=== PATIENT | female | born 1955 | race Caucasian/White ===

== ENCOUNTER 2022-05-31 08:54 | Emergency (ER) | payer MEDICARE ==
[2022-05-31 09:04] VITALS: BP 159/98
--- OUTSIDE RECORDS SUMMARY | 2022-05-31 09:08 | EXTERNAL MEDICAL SUMMARY RPT | Continuity of Care Document ---
:1955 Author Organization [facility] Address [address] [place] [address] Phone Care Team Providers Name Role Phone Unavailable Unavailable Unavailable Adebayo Jacinto, [place] Unavailable Unavailable Damaris, Provider Unavailable Unavailable Allergies No information. Encounters No information. Functional Status No information. Immunizations No information. Medications date description facility 2022-04-29 00:00 erythromycin [facility] [place] 2022-04-29 00:00 erythromycin [facility] [place] 2022-04-29 00:00 erythromycin [facility] [place] 2022-04-29 00:00 erythromycin [facility] [place] 2022-04-29 00:00 erythromycin [facility] [place] 2022-04-29 00:00 erythromycin [facility] [place] 2022-04-29 00:00 erythromycin [facility] [place] 2022-04-29 00:00 erythromycin [facility] [place] Problems date description facility 2022-04-29 00:00 External hordeolum [facility] [place] 2022-04-29 00:00 External [facility]deolum [facility] [place] 2022-04-29 00:00 Hordeolum externum [facility] [place] 2022-04-29 00:00 Horde[facility]um externum [facility] [place] 2022-04-29 00:00 Hordeolum externum unspecified [facility] unspecified eyelid [facility] [place] 2022-04-29 00:00 Hordeolum externum unspecified [facility] [place] Procedures date description facility 2022-04-29 00:00 Visit Code Hold [facility] [place] 2022-04-29 00:00 Visit Code Hold [facility] [place] Results/Labs No information. Social History date description facility 2022-04-29 00:00 Unknown if ever smoked [facility] [place] 2022-04-29 00:00 Unknown if ever smoked [facility] [place] 2022-05-03 00:00 Unknown if ever smoked [facility] [place] Vital Signs date measurement value units 2022-04-29 00:00 BMI 20.31 kg/m2 2022-04-29 00:00 BP_diastolic 92 mmHg 2022-04-29 00:00 BP_systolic 140 mmHg 2022-04-29 00:00 heart_rate 95 /min 2022-04-29 00:00 height_metric 167.64 cm 2022-04-29 00:00 height_standard 66 in 2022-04-29 00:00 respiration_rate 12 /min 2022-04-29 00:00 temperature_metric 37.72 C 2022-04-29 00:00 temperature_standard 99.9 F 2022-04-29 00:00 weight_metric 56.88 kg 2022-04-29 00:00 weight_standard 125.4 lb
--- NOTE | 2022-05-31 09:09 | ED Physician Documentation ---
PD HPI BACK PAIN - Stated complaint Stated Complaint: BACK PX - Chief complaint Chief Complaint: Back Pain - History obtained from History obtained from: Patient - History of Present Illness Timing - onset: How many days ago (5) Timing - duration: Days (5) Timing - details: Gradual onset, Still present Location: Lower, Right, Left Quality: Pain, Spasm, Similar to prior episodes Associated symptoms: Fever. No: Weakness, Numbness, Incontinent of urine Improves with: No: Rest, Meds (tried Aspirin, CBD oil, and topical patches.) Worsened by: Movement, Twisting. No: Palpation Contributing factors: No: Lifting, Twisting Similar symptoms before: Diagnosis (HNP with some foraminal impingement in upper lumbar area. Was to get disc injection or rhizotomy or such ("burning the nerve")) Recently seen: Clinic ([facility] [place] was directed to try OTC meds and CBD oil. These were not effective.) Review of Systems Constitutional: denies: Fever, Chills : denies: Incontinent Skin: denies: Rash, Lesions Neurologic: denies: Focal weakness, Numbness PD PAST MEDICAL HISTORY - Past Medical History Cardiovascular: None Neuro: None Musculoskeletal: Chronic back pain - Present Medications Home Medications: Ambulatory Orders Medication Instructions Recorded Confirmed Gabapentin [Neurontin] 100 mg PO TID 15 Days #45 cap 05/31/22 Meloxicam [Mobic] 7.5 mg PO BID 10 Days #20 tablet 05/31/22 dexAMETHasone [Decadron] 4 mg PO DAILY #5 tablet 05/31/22 methocarbamoL [Robaxin] 500 mg PO TID PRN #30 tablet 05/31/22 oxyCODONE [Roxicodone] 5 mg PO Q6H PRN #18 tablet 05/31/22 - Allergies Allergies/Adverse Reactions: Allergies Allergy/AdvReac Type Severity Reaction Status Date / Time tetanus and diphtheria Allergy Unknown Verified 05/31/22 09:01 toxoids Results - Vitals Vitals: Vital Signs - 24 hr 05/31/22 08:58 Temperature 36.4 C L Heart Rate 128 H Respiratory 16 Rate Blood Pressure 159/98 H O2 Saturation 99 Oxygen O2 Source Room air PD Medical Decision Making - ED course Social Determinants of Health: She was living in [place], with primary care and back specialist there, but moved here in March and is still developing careproviders. Has PCP at [facility]. Getting referral to Pain Clinic, per patient. Drug Therapy Requiring Monitoring for Toxicity: considered IM narcotic but she is driving herself and did not want to cause sedation/impairment. Procedural Risk Factors Specific to Patient: The patient has had chronic back pain without recent new injury and does not have any red flags to suggest need for current emergent imaging. ED course: Exac of chronic back pain. No red flags. Will give Rx for meds. Departure - Departure Disposition: Home, Self Care Clinical Impression: Thoracolumbar back pain Condition: Stable Record reviewed to determine appropriate education?: Yes Instructions: ED Neck Back Pain General Follow-Up: NORRIS FINNEY ARNP [Primary Care Provider] - Prescriptions: dexAMETHasone [Decadron] 4 mg PO DAILY #5 tablet Meloxicam [Mobic] 7.5 mg PO BID 10 Days #20 tablet Gabapentin [Neurontin] 100 mg PO TID 15 Days #45 cap methocarbamoL [Robaxin] 500 mg PO TID PRN #30 tablet PRN Reason: Spasms oxyCODONE [Roxicodone] 5 mg PO Q6H PRN #18 tablet PRN Reason: Pain Comments: Back pain related to disc problems and pinched nerves are commonly treated with a combination of oral and topical treatments with medication as well as physical modalities. Continue with topical treatments of some anti-inflammatories or lidocaine or CBD as you have been using. Consider physical treatment such as physical therapy or chiropractic as well. Medications we can add our a combination of anti-inflammatories with muscle relaxant as well as medication targeted at nerve irritation. I would have you start with Decadron steroid anti-inflammatory daily for 5 days and then when that is done to change to meloxicam NSAID twice daily. Robaxin muscle relaxant for spasms and stiffness. Gabapentin is commonly tried to help with nerve and spine type pains. I started a very low-dose of 100 mg 3 times a day. To that add Tylenol every 4-6 hours for pain and add oxycodone atop that if needed for worse pain. Follow-up with your primary care. Continue with referrals to pain specialist and back specialist. I sent your prescriptions to [facility] in [place]. I am prescribing a short course of narcotic pain medication for you. These are potentially dangerous and addictive medications that should be used carefully. These medications may constipate you. Take an cvlt-aky-rndigwi stool softener such as docusate twice daily with plenty of water while taking these medications. If you go 24 hours without a bowel movement, take caml-pdv-vditumi MiraLAX, per package instructions. Do not drink or drive while taking these medications. If you received narcotic or sedating medications while in the emergency department do not drive for 24 hours. Store this medication in a safe, secure place and out of reach of children. It is a violation of federal law to give or sell this medication to another person or to use in a manner other than prescribed. The ED will not refill narcotic prescriptions, including prescriptions lost or stolen. You can dispose of unwanted medications at the [facility]'s office or at several pharmacies such as [facility]. Discharge Date/Time: 05/31/22 10:20
[2022-05-31] MEDS ORDERED: ACETAMINOPHEN 325 MG TABLET PO STA (09:37)
[2022-05-31] MEDS ORDERED: DEXAMETHASONE 10 MG/ML VIAL PO STA (09:37)
[2022-05-31] MEDS ORDERED: KETOROLAC 30 MG/ML VIAL IM STA (09:37)
[2022-05-31] MEDS ORDERED: CHERRY SYRUP 10 ML UDC PO ONE (09:37)
[2022-05-31] MEDS ORDERED: methocarbamoL 500 MG TABLET PO STA (09:37)
== END 2022-05-31 10:20 | disposition home or self-care (01) ==
LOC: ED 08:54
DX: M54.50 Low back pain, unspecified (principal); M54.6 Pain in thoracic spine
CPT/HCPCS: 96372; 99284; A9270

== ENCOUNTER 2022-06-05 07:27 | Outpatient (CLI) | payer MEDICARE ==
--- NOTE | 2022-06-07 08:23 | MRI Report ---
PROCEDURE: THORACIC SPINE WO INDICATIONS: THORACIC BACK PAIN TECHNIQUE: Noncontrast sagittal T1 spine echo and T2 fast spin echo, sagittal STIR, axial T1 and T2 fast spin ec ho through the thoracic spine. COMPARISON: None. FINDINGS: Image quality: Excellent. Alignment and Curvature: Mild S-shaped thoracolumbar scoliotic curvature. Minimal thoracic convexity to the right. Bone Marrow: Marrow is of normal overall signal. No acute vertebral body compression fractures. Mu ltilevel degenerative disc space loss. There is disc space fluid at T10-T11, which is felt to be arth ritic in nature. Spinal Cord: Visualized spinal cord is normal in size and signal. Conus is at T12-L1. Paraspinous Soft Tissues: No paravertebral masses. Miscellaneous: On axial images, central canal is patent at all scanned levels. There is no significa nt foraminal narrowing at any level. There are disc bulge is present at T7-T8 and T10-T11 without can al stenosis. There is a mild left posterior disc protrusion at T11-T12 without canal stenosis or sign ificant foraminal stenosis. IMPRESSION: 1. Mild scoliotic curvature, multilevel degenerative disc disease. 2. Multilevel disc bulges. 3. No canal stenosis or significant foraminal stenosis. 4. No thoracic compression fractures. Reviewed by: Kit Pelaez MD on 06/07/2022 8:22 AM PST Approved by: Kit Pelaez MD on 06/07/2022 8:22 AM PST Station ID: [id number]
== END 2022-06-05 07:28 | disposition home or self-care (01) ==
LOC: DI 07:27
PROVIDERS: ATTEND Nurse Practitioner Family
DX: M51.24 Other intervertebral disc displacement, thoracic region (principal); M51.34 Other intervertebral disc degeneration, thoracic region

== ENCOUNTER 2022-06-05 07:29 | Outpatient (CLI) | payer MEDICARE ==
--- NOTE | 2022-06-05 09:35 | XRAY Report ---
PROCEDURE: Lumbar Spine 2 View INDICATIONS: THORACIC BACK PAIN TECHNIQUE: 2 views of the lumbar spine were acquired. COMPARISON: None. FINDINGS: Bones: 5 ygr-evj-zlicmmn vertebrae are present. There is moderate levoscoliosis of lumbar spine erick tered at L3 level. Moderate degenerative endplate changes, loss of disc height and bilateral facet ar throsis throughout lumbar spine is seen. No vertebral body compression fractures. No suspicious bony lesions. Soft tissues: Overlying bowel gas pattern is normal. No suspicious soft tissue calcifications. IMPRESSION: Scoliosis as above. No acute compression fracture. Degenerative disc disease throughout lumbar spine. Reviewed by: Harvinder Egan MD on 06/05/2022 9:34 AM PST Approved by: Harvinder Egan MD on 06/05/2022 9:34 AM PST Station ID: [id number]
--- NOTE | 2022-06-05 09:45 | XRAY Report ---
PROCEDURE: Cervical Spine 2 View INDICATIONS: THORACIC BACK PAIN TECHNIQUE: 3 view(s) of the cervical spine were acquired. COMPARISON: None. FINDINGS: Bones: No fractures or dislocations to the C7-T1 level. There is 3 to 4 mm anterolisthesis of C3 on C4 and C4 on C5. Degenerative endplate changes, loss of disc height and bilateral facet hypertrophic changes throughout cervical spine is seen. The lateral masses of C1 appear intact on the odontoid vi ew. No suspicious bony lesions. Soft tissues: No prevertebral soft tissue swelling. IMPRESSION: No acute cervical spine fracture or dislocation. Grade 1 anterolisthesis of C3 on C4 and C4 on C5. Degenerative disc disease throughout cervical spine. Reviewed by: Harvinder Egan MD on 06/05/2022 9:44 AM PST Approved by: Harvinder Egan MD on 06/05/2022 9:44 AM [facility] Station ID: [id number]
--- NOTE | 2022-06-05 10:31 | XRAY Report ---
PROCEDURE: Thoracic Spine 2 View INDICATIONS: THORACIC BACK PAIN TECHNIQUE: 3 views of the thoracic spine were acquired. COMPARISON: Correlation is made with the accompanying radiographs and the accompanying thoracic spin e MRI. FINDINGS: Bones: No fractures or dislocations. No suspicious bony lesions. 12 pairs of ribs are noted, and a ppear intact where visualized. Moderate dextroconvex thoracal lumbar scoliosis can be seen. There is accentuated thoracic kyphosis. Several levels of minimal anterior wedge deformity can be seen within the lower thoracic spine. No ac chemehuevi features are seen. Several levels of endplate irregularity and sclerosis can be seen. Soft tissues: No paravertebral stripe thickening. IMPRESSION: Moderate dextroconvex scoliosis. Degenerative changes are seen throughout. Several levels of minimal anterior wedge deformity can be seen, with associated accentuated thoracic kyphosis. Reviewed by: Osorio Zhang MD on 06/05/2022 9:30 AM [facility] Approved by: Osorio Zhang MD on 06/05/2022 9:30 AM [facility] Station ID: [id number]
== END 2022-06-05 07:30 | disposition home or self-care (01) ==
LOC: DI 07:29
PROVIDERS: ATTEND Nurse Practitioner Family
DX: M47.814 Spondylosis without myelopathy or radiculopathy, thoracic region (principal); M51.36 Other intervertebral disc degeneration, lumbar region; M43.12 Spondylolisthesis, cervical region; M50.30 Other cervical disc degeneration, unspecified cervical region; M51.34 Other intervertebral disc degeneration, thoracic region; M51.24 Other intervertebral disc displacement, thoracic region

== ENCOUNTER 2022-07-12 14:49 | Outpatient (CLI) | payer MEDICARE | END 2022-07-12 14:50 | disposition home or self-care (01) | LOC: LAB.S 14:49 | PROVIDERS: ATTEND Nurse Practitioner Family | DX: Z11.1 Encounter for screening for respiratory tuberculosis (principal) | CPT/HCPCS: 81599; 86480 ==

== ENCOUNTER 2023-07-10 13:25 | Emergency (ER) | payer MEDICARE ==
[2023-07-10] MEDS ORDERED: ONDANSETRON 4 MG/2 ML VIAL IVP STA (14:01)
[2023-07-10 14:27] LABS: BASOPHILS % (AUTO) 0.2 %; EOSINOPHILS % (AUTO) 0.1 %; HCT - HEMATOCRIT 51.4 % (37.0-47.0); HGB - HEMOGLOBIN 16.8 g/dL (12.0-16.0); LYMPHOCYTES % (AUTO) 7.5 %; MEAN CORPUSCULAR HEMOGLOBIN 29.5 pg (27.0-31.0); MEAN CORPUSCULAR HGB CONC 32.7 g/dL (32.0-36.0); MEAN CORPUSCULAR VOLUME 90.2 fL (81.0-99.0); MEAN PLATELET VOLUME 9.5 fL (7.9-10.8); MONOCYTES # (AUTO) 0.3 10^3/uL (0.0-1.0); MONOCYTES % (AUTO) 2.2 %; NEUTROPHILS # (AUTO) 12.4 10^3/uL (1.5-6.6); NEUTROPHILS % (AUTO) 89.4 %; PLT - PLATELET COUNT 437 10^3/uL (130-450); RED CELL DISTRIBUTION WIDTH 12.2 % (12.0-15.0); WHITE BLOOD COUNT 13.9 x10^3/uL (4.8-10.8)
[2023-07-10 14:44] LABS: ALBUMIN/GLOBULIN RATIO 1.6 (1.0-2.2); ALKALINE PHOSPHATASE 117 IU/L (42-121); ALT ALANINE AMINOTRANSFERASE 20 IU/L (10-60); AST ASPARTATE AMINOTRANSFERASE 16 IU/L (10-42); BILIRUBIN,TOTAL 0.6 mg/dL (0.2-1.0); BUN - BLOOD UREA NITROGEN 12 mg/dL (6-20); CALCIUM 9.9 mg/dL (8.5-10.3); CARBON DIOXIDE - CO2 26 mmol/L (21-32); CHLORIDE 101 mmol/L (101-111); CREATININE 0.7 mg/dL (0.6-1.3); GFR - MDRD 83 (>89); GLUCOSE 162 mg/dL (74-104); POTASSIUM 3.8 mmol/L (3.5-4.5); SODIUM 138 mmol/L (135-145); TOTAL PROTEIN 8.1 g/dL (6.4-8.9)
[2023-07-10 14:47] LABS: LIPASE < 10 U/L (11-82)
--- NOTE | 2023-07-10 14:54 | ED Physician Documentation ---
PD HPI NVD - Stated complaint Stated Complaint: N/V,CHILLS,SWEATING - Chief complaint Chief Complaint: Abd Pain - History obtained from History obtained from: Patient - History of Present Illness Timing - onset: Today Timing - duration: Hours Timing - details: Abrupt onset, Still present Associated symptoms: Abdominal pain (cramping intermittent upper abd.), Loss of appetite. No: Fever, Chest pain, Hematemesis, Near syncope / syncope (but feeling generally weak) Contributing factors: Alcohol use (along with cannibis fudge.). No: Sick contact, Bad food Similar symptoms before: Has not had sx before Review of Systems Constitutional: denies: Fever, Chills Nose: denies: Rhinorrhea / runny nose, Congestion Throat: denies: Sore throat Respiratory: denies: Cough GI: denies: Diarrhea PD PAST MEDICAL HISTORY - Past Medical History Past Medical History: Yes Cardiovascular: None Neuro: None Musculoskeletal: Chronic back pain - Past Surgical History Past Surgical History: Yes /[employer]: Hysterectomy - Present Medications Home Medications: Ambulatory Orders Medication Instructions Recorded Confirmed Gabapentin [Neurontin] 100 mg PO TID 15 Days #45 cap 05/31/22 07/10/23 Meloxicam [Mobic] 7.5 mg PO BID 10 Days #20 tablet 05/31/22 07/10/23 methocarbamoL [Robaxin] 500 mg PO TID PRN #30 tablet 05/31/22 07/10/23 oxyCODONE [Roxicodone] 5 mg PO Q6H PRN #18 tablet 05/31/22 07/10/23 Ondansetron Odt [Zofran] 4 mg TL Q6H PRN #10 tablet 07/10/23 - Allergies Allergies/Adverse Reactions: Allergies Allergy/AdvReac Type Severity Reaction Status Date / Time tetanus and diphtheria Allergy Unknown Verified 07/10/23 15:09 toxoids - Social History Does the pt smoke?: Yes Smoking Status: Current every day smoker PD ED PE NORMAL - Vitals Vital signs reviewed: Yes (mild tachycarida. BP elevated and not low. ) - General General: Alert and oriented X 3, No acute distress, Well developed/nourished - HEENT HEENT: Pharynx benign - Neck Neck: Supple, no meningeal sign, No adenopathy - Cardiac Cardiac: RRR (mild tachy), No murmur - Respiratory Respiratory: No respiratory distress, Clear bilaterally - Abdomen Abdomen: Normal bowel sounds, Soft, Non tender, Non distended, No organomegaly - Derm Derm: Normal color, Warm and dry Results - Vitals Vitals: Oxygen O2 Source Room air - Labs Labs: Laboratory Tests 07/10/23 07/10/23 14:24 14:24 WBC 13.9 H RBC 5.70 H Hgb 16.8 H Hct 51.4 H MCV 90.2 MCH 29.5 MCHC 32.7 RDW 12.2 Plt Count 437 MPV 9.5 Neut # (Auto) 12.4 H Lymph # (Auto) 1.0 L Quay # (Auto) 0.3 Eos # (Auto) 0.0 Baso # (Auto) 0.0 Absolute Nucleated RBC 0.00 Nucleated RBC % 0.0 Sodium 138 Potassium 3.8 Chloride 101 Carbon Dioxide 26 Anion Gap 11.0 BUN 12 Creatinine 0.7 Estimated GFR (MDRD) 83 L Glucose 162 H Calcium 9.9 Total Bilirubin 0.6 AST 16 ALT 20 Alkaline Phosphatase 117 Total Protein 8.1 Albumin 5.0 Globulin 3.1 Albumin/Globulin Ratio 1.6 Lipase < 10 L PD Medical Decision Making - ED course Complexity details: reviewed results (chemistry panel without notable abnormalities, done tocheck lytes which are good, sugar, which is good, and LFTs/Lipse which are not elevated. WBC and Hgb elevated suggesting possible infectious though could be stress demargination of WBC, and elevated Hgb c/w volume depletion. ), re-evaluated patient (We can check electrolytes and blood count. Otherwise give IV fluids and antiemetic for presumed substance related nausea and acute gastritis. She denies hematemesis. No diarrhea.), considered differential (The patient had a combination of some wine as well as Jell-O shots and cannabis fudge last evening add a "alliance party" at her house. She denies use of marijuana in the past. She is feeling nauseous overnight with repetitive vomiting. No diarrhea. No head cold symptoms.), d/w patient Reviewed Lab Results: No focal tenderness on exam so considered but did not see needed aany imaging, noy in conjunction with nromal LFTs/lipase. Departure - Departure Disposition: 01 Home, Self Care Clinical Impression: Nausea and vomiting, Volume depletion, Acute gastritis Condition: Stable Record reviewed to determine appropriate education?: Yes Instructions: ED Nausea Vomiting Prescriptions: Ondansetron Odt [Zofran] 4 mg TL Q6H PRN #10 tablet PRN Reason: Nausea / Vomiting Comments: Presumption would be an irritation of your stomach related to the alcohol use and/or medication. Potential could be a concurrent or coincident viral type illness. I would presume your nausea will be improved and the stomach irritation heal over the next day or 2. We are sending you with a couple of ondansetron/Zofran tablets to use if needed for nausea. Small frequent fluids with small amounts at a time initially. [place] food initially. Progress as tolerated later today or tomorrow. You were given IV fluids here to "fill up the tank". That we will provide a buffer for in case you are not able to hydrate well tonight. Recheck if not improved well over the next few days back to baseline. Return if needed. I did write a prescription for some more of the nausea medicine if you were to need it. Forms: PCP List Discharge Date/Time: 07/10/23 18:03
[2023-07-10] MEDS: SODIUM CHLORIDE 0.9% 1,000 ML IV STA (15:29)
[2023-07-10] MEDS: ONDANSETRON 4 MG/2 ML VIAL IVP STA (15:31)
[2023-07-10] MEDS: LACTATED RINGERS 1,000 ML IV STA (16:19)
[2023-07-10] MEDS: DROPERIDOL 5 MG/2 ML VIAL IVP STA (16:22)
[2023-07-10 17:04] VITALS: O2SAT 98
[2023-07-10] MEDS: ONDANSETRON ODT 4 MG Prepack 2 TL PRN (17:54)
[2023-07-10 18:06] VITALS: BP 192/84
== END 2023-07-10 18:03 | disposition home or self-care (01) ==
LOC: ED 13:25
DX: K29.00 Acute gastritis without bleeding (principal); E86.9 Volume depletion, unspecified; F17.200 Nicotine dependence, unspecified, uncomplicated; Z79.899 Other long term (current) drug therapy
CPT/HCPCS: 36415; 80053; 83690; 85025; 96361; 96374; 96375; 99284; J7120